=== PATIENT | female | born 1950 | race Caucasian/White ===

== ENCOUNTER 2020-10-03 06:44 | Day surgery (SDC) | payer MEDICARE, SELFPAY ==
[2020-09-27 14:07] VITALS: BMI 36.3
--- NOTE | 2020-09-30 12:53 | MHC.SHP ---
Pre-Procedural Eval Section A The patient is an INPATIENT: No The History & Physical has been completed within 30 days and I have reviewed it.: Yes Section B Chief Complaint: Cataract Right Eye Allergies: Allergies Allergy/AdvReac Type Severity Reaction Status Date / Time clindamycin Allergy Intermediate Hives Verified 09/27/20 14:13 oxycodone Allergy Intermediate Hives Verified 09/27/20 14:13 Rhlbfzo-Etn-Hqp Reductase AdvReac Intermediate Muscle Pain Verified 09/27/20 14:13 Inhibitor Sulfa (Sulfonamide AdvReac Intermediate Nausea Verified 09/27/20 14:13 Antibiotics) Plan Diagnosis/Plan: Unchanged I have reviewed the history and physical and performed a pertinent physical examination on my patient. No changes have occurred unless specified.
[2020-10-03] MEDS: Tetracaine HCl/PF 0.5% Oph Sol 4 ML DROPS 1 DROP EYE-RIGHT (07:04)
[2020-10-03] MEDS: Tropicamide 1 % Ophth Sol 3 ML BTL 1 DROP EYE-RIGHT ×3 (07:07→07:15)
[2020-10-03] MEDS: Phenylephrine HCL 2.5% Oph SoL 2 ML BOTTLE 1 DROP EYE-RIGHT ×3 (07:09→07:17)
[2020-10-03 07:27] VITALS: BP 140/73; PULSE 70; RESP 18; TEMP 36.2; O2SAT 97
[2020-10-03] MEDS: Lactated Ringers 500 ML 50 ML IV (07:27)
--- NOTE | 2020-10-03 07:56 | P.CONAN_ITS ---
[facility] Past Medical History Medical History Arthritis Depression Elevated cholesterol GERD (gastroesophageal reflux disease) HTN (hypertension) Surgical History Surgical History H/O colonoscopy History of total bilateral knee replacement History of total right hip replacement Social History Social History Are you a primary insurance healthcare representative to a significant other at home: No Do you presently have visiting nurse or other home services: No Smoking Status: Never smoker Use of substances other than those prescribed or required for medical reasons: No Have you been hit, kicked, punched, or otherwise hurt by someone within the past year? If so, by whom?: No Advance Directives Information Provided: No Recently lost weight without trying: No Meds Allergies Allergy/AdvReac Type Severity Reaction Status Date / Time clindamycin Allergy Intermediate Hives Verified 09/27/20 14:13 oxycodone Allergy Intermediate Hives Verified 09/27/20 14:13 Dajgtlo-Ghg-Lqf Reductase AdvReac Intermediate Muscle Pain Verified 09/27/20 14:13 Inhibitor Sulfa (Sulfonamide AdvReac Intermediate Nausea Verified 09/27/20 14:13 Antibiotics) Active Medications: Current Medications Generic Name Dose Route Start Last Admin Trade Name Freq PRN Reason Stop Dose Admin Lactated Ringer's 500 mls @ 50 mls/hr 10/03/20 07:15 10/03/20 07:27 Lr IV 50 mls/hr .Q10H TREMAYNE Administration Ondansetron HCl 4 mg 10/03/20 07:47 Ondansetron Hcl 4 Mg/2 Ml Vial IVPUSH ONCE PRN Nausea and Vomiting Povidone Iodine 1 appl 10/03/20 06:53 Povidone Iodine 5 % Ophth Soln 30 Ml Bottle EYE-RIGHT PREOP PRN Pre-Op Surgical Implant Prophy Home Medications Medication Instructions Recorded Confirmed Last Taken Type aspirin [Aspirin Low Dose] 81 mg PO DAILY 09/27/20 09/27/20 Unknown History celecoxib 1 cap PO DAILY 09/27/20 09/27/20 Unknown History clonazepam 1 tab PO BID PRN 09/27/20 09/27/20 10/03/20 06:00 History diltiazem HCl 90 mg PO BID 09/27/20 09/27/20 10/03/20 06:00 History ezetimibe 10 mg PO DAILY 09/27/20 09/27/20 Unknown History fenofibrate micronized 134 mg PO QAM 09/27/20 09/27/20 Unknown History losartan 25 mg PO DAILY 09/27/20 09/27/20 Unknown History omeprazole 20 mg PO BID 09/27/20 09/27/20 10/03/20 06:00 History pramipexole 1 tab PO BEDTIME 09/27/20 09/27/20 Unknown History venlafaxine 1 cap PO DAILY 09/27/20 09/27/20 10/03/20 06:00 History Exam Exam Date and Time: October 03, 2020 0756 Height,Weight and Vital Signs: Height 4 ft 11 in Weight 81.647 kg Last Vital Signs Temp 97.2 F 10/03/20 07:27 Pulse 70 10/03/20 07:27 Resp 18 10/03/20 07:27 BP 140/73 H 10/03/20 07:27 Pulse Ox 97 10/03/20 07:27 Airway Mallampati Class: II TM Dist: >3cm Neck ROM: Full Loose/Missing/Broken Teeth: No Heart: rrr+[id number] Lungs: cta b/l Assessment and Plan Assessment Anesthesia Assessment: Anesthesia Plan Discussed and Chart Reviewed Final Anesthetic Review NPO: Yes ASA Class: III Final Preanesthetic Review: No Changes in Pt Med Stat, Meds/Allgs Chart Reviewed, Consent Obtained/Reviewed and Anes Risks/Benef Reviewed Patient Risk: Low Procedure Risk: Low Assessment/Block/Sedation in SS: Assess/Block/Sedation-SS Anesthetic Plan Anesthetic Plan: MAC: and Agree w/ Assess. and Plan Disposition: Standard PACU
--- NOTE | 2020-10-03 08:43 | HO.PNOPHT ---
Ophthalmology Procedure Procedure Date of Service: 10/03/20 Ophthalmology Viscoelastic: Healon Duet Dual Pack Pro Ophthalmology Lenses: TECNIS [id number] (22.5) Procedure Notes: PREOPERATIVE DIAGNOSIS: Decreased visual acuity right eye secondary to cataract POSTOPERATIVE DIAGNOSIS: Same PROCEDURE: Right cataract extraction with intraocular lens insertion SURGEON: Andrae Moe M.D. ANESTHESIA: Topical/MAC ESTIMATED BLOOD LOSS: None COMPLICATIONS: None After obtaining informed consent, the patient was brought to the operating room suite and placed in the supine position. After adequate sedation per anesthesia, topical drops of Tetracaine were given to the right eye. The eye was then prepped and draped in the usual sterile fashion. The operating room microscope was then positioned over the operative eye and a lid speculum placed. A paracentesis was created. Viscoelastic was then instilled into the anterior chamber. A three plane incision was then created temporally, utilizing a 2.85 mm keratome. Capsulotomy forceps were then utilized to create a circular tear capsulotomy. Hydrodissection and hydrodelineation were carried out until adequate mobilization of the nucleus occurred. Phacoemulsification was then utilized to remove the dense central nucleus followed by removal of the cortical material utilizing the automated aspiration irrigation unit. Viscoelastic was instilled into the posterior capsular bag followed by placement of a posterior chamber intraocular lens without difficulty. The residual Viscoelastic was then removed utilizing the automated IA machine. The wound was checked and found to be watertight. The patient tolerated the procedure well and the lid speculum was removed. Intracameral injection of Vigamox 0.1 mL followed by a subtenon injection of Kenalog-40 0.2 mL were administered. The patient will be seen in the a.m.
[2020-10-03 08:46] VITALS: BP 134/71; PULSE 75; RESP 20; TEMP 36.7; O2SAT 96
== END 2020-10-03 09:20 | disposition home or self-care (01) ==
PROVIDERS: PCP Family Medicine; Visit Provider Ophthalmology
PROC: (CPT 66985; principal; 2020-10-03 08:20)
DX: H25.11 Age-related nuclear cataract, right eye (principal); H52.4 Presbyopia; Z83.511 Family history of glaucoma; I10 Essential (primary) hypertension; Z79.899 Other long term (current) drug therapy
CPT/HCPCS: 66984; J2250; J3010; J3300; V2632

== ENCOUNTER 2020-10-17 07:09 | Day surgery (SDC) | payer MEDICARE, SELFPAY ==
[2020-09-27 14:14] VITALS: BMI 36.3
--- NOTE | 2020-10-12 16:32 | MHC.SHP ---
Pre-Procedural Eval Section A The patient is an INPATIENT: No The History & Physical has been completed within 30 days and I have reviewed it.: Yes Section B Chief Complaint: Cataract Left Eye Allergies: Allergies Allergy/AdvReac Type Severity Reaction Status Date / Time clindamycin Allergy Intermediate Hives Verified 09/27/20 14:13 oxycodone Allergy Intermediate Hives Verified 09/27/20 14:13 Rzhdryt-Zqf-Gyv Reductase AdvReac Intermediate Muscle Pain Verified 09/27/20 14:13 Inhibitor Sulfa (Sulfonamide AdvReac Intermediate Nausea Verified 09/27/20 14:13 Antibiotics) Plan Diagnosis/Plan: Unchanged I have reviewed the history and physical and performed a pertinent physical examination on my patient. No changes have occurred unless specified.
--- NOTE | 2020-10-14 08:25 | P.CONAN_ITS ---
Documented by User: Beth Guillen 10/14/20 08:26 HPI - Anesthesia Eval Consult details Narrative: 69yo F for Left Cataract Extraction IOL Insertion Right eye 10/03/20, Fent 25, Midaz 1 PMFSH Past Medical History Medical History Arthritis Depression Elevated cholesterol GERD (gastroesophageal reflux disease) HTN (hypertension) Surgical History Surgical History H/O colonoscopy History of total bilateral knee replacement History of total right hip replacement Social History Social History Are you a primary patient care provider to a significant other at home: No Do you presently have visiting nurse or other home services: No Smoking Status: Never smoker Use of substances other than those prescribed or required for medical reasons: No Have you been hit, kicked, punched, or otherwise hurt by someone within the past year? If so, by whom?: No Advance Directives Information Provided: No Recently lost weight without trying: No Meds Allergies Allergy/AdvReac Type Severity Reaction Status Date / Time clindamycin Allergy Intermediate Hives Verified 10/17/20 07:17 oxycodone Allergy Intermediate Hives Verified 10/17/20 07:17 Tubptck-Wcp-Qfn Reductase AdvReac Intermediate Muscle Pain Verified 10/17/20 07:17 Inhibitor Sulfa (Sulfonamide AdvReac Intermediate Nausea Verified 10/17/20 07:17 Antibiotics) Home Medications Medication Instructions Recorded Confirmed Last Taken Type aspirin [Aspirin Low Dose] 81 mg PO DAILY 09/27/20 09/27/20 10/16/20 09:00 History celecoxib 1 cap PO DAILY 09/27/20 09/27/20 Unknown History clonazepam 1 tab PO BID PRN 09/27/20 09/27/20 10/17/20 06:30 History diltiazem HCl 90 mg PO BID 09/27/20 09/27/20 10/17/20 06:30 History ezetimibe 10 mg PO DAILY 09/27/20 09/27/20 Unknown History fenofibrate micronized 134 mg PO QAM 09/27/20 09/27/20 Unknown History losartan 25 mg PO DAILY 09/27/20 09/27/20 Unknown History omeprazole 20 mg PO BID 09/27/20 09/27/20 10/17/20 06:30 History pramipexole 1 tab PO BEDTIME 09/27/20 09/27/20 Unknown History venlafaxine 1 cap PO DAILY 09/27/20 09/27/20 10/17/20 06:30 History Exam Exam Date and Time: October 14, 2020 0825 Height,Weight and Vital Signs: Height 4 ft 11 in Weight 81.647 kg Assessment and Plan Assessment Anesthesia Assessment: Chart Reviewed Documented by User: Yoly Sutton 10/17/20 08:18 PMF Past Medical History Medical History Arthritis Depression Elevated cholesterol GERD (gastroesophageal reflux disease) HTN (hypertension) Surgical History Surgical History H/O colonoscopy History of total bilateral knee replacement History of total right hip replacement Social History Social History Are you a primary patient care provider to a significant other at home: No Do you presently have visiting nurse or other home services: No Smoking Status: Never smoker Use of substances other than those prescribed or required for medical reasons: No Have you been hit, kicked, punched, or otherwise hurt by someone within the past year? If so, by whom?: No Advance Directives Information Provided: No Recently lost weight without trying: No Meds Allergies Allergy/AdvReac Type Severity Reaction Status Date / Time clindamycin Allergy Intermediate Hives Verified 10/17/20 07:17 oxycodone Allergy Intermediate Hives Verified 10/17/20 07:17 Jvqmfys-Why-Fiz Reductase AdvReac Intermediate Muscle Pain Verified 10/17/20 07:17 Inhibitor Sulfa (Sulfonamide AdvReac Intermediate Nausea Verified 10/17/20 07:17 Antibiotics) Home Medications Medication Instructions Recorded Confirmed Last Taken Type aspirin [Aspirin Low Dose] 81 mg PO DAILY 09/27/20 09/27/20 10/16/20 09:00 History celecoxib 1 cap PO DAILY 09/27/20 09/27/20 Unknown History clonazepam 1 tab PO BID PRN 09/27/20 09/27/20 10/17/20 06:30 History diltiazem HCl 90 mg PO BID 09/27/20 09/27/20 10/17/20 06:30 History ezetimibe 10 mg PO DAILY 09/27/20 09/27/20 Unknown History fenofibrate micronized 134 mg PO QAM 09/27/20 09/27/20 Unknown History losartan 25 mg PO DAILY 09/27/20 09/27/20 Unknown History omeprazole 20 mg PO BID 09/27/20 09/27/20 10/17/20 06:30 History pramipexole 1 tab PO BEDTIME 09/27/20 09/27/20 Unknown History venlafaxine 1 cap PO DAILY 09/27/20 09/27/20 10/17/20 06:30 History Exam Height,Weight and Vital Signs: Vital Signs Temp Pulse Resp BP Pulse Ox 10/17/20 07:38 97.2 F 71 18 144/72 H 97 Airway Mallampati Class: II TM Dist: >3cm Neck ROM: Full Heart: RRR Lungs: CTAB Assessment and Plan Assessment Anesthesia Assessment: Anesthesia Plan Discussed and Chart Reviewed Final Anesthetic Review NPO: Yes ASA Class: II Final Preanesthetic Review: No Changes in Pt Med Stat, Meds/Allgs Chart Reviewed, Consent Obtained/Reviewed and Anes Risks/Benef Reviewed Patient Risk: Low Procedure Risk: Low Assessment/Block/Sedation in SS: Assess/Block/Sedation-SS Anesthetic Plan Anesthetic Plan: MAC: Disposition: Standard PACU
[2020-10-17 07:38] VITALS: BP 144/72; PULSE 71; RESP 18; TEMP 36.2; O2SAT 97
[2020-10-17] MEDS: Lactated Ringers 500 ML 50 ML IV (07:49)
[2020-10-17] MEDS: Tetracaine HCl/PF 0.5% Oph Sol 4 ML DROPS 1 DROP EYE-LEFT (07:50)
[2020-10-17] MEDS: Tropicamide 1 % Ophth Sol 3 ML BTL 1 DROP EYE-LEFT ×3 (07:51→07:59)
[2020-10-17] MEDS: Phenylephrine HCL 2.5% Oph SoL 2 ML BOTTLE 1 DROP EYE-LEFT ×3 (07:54→08:01)
--- NOTE | 2020-10-17 08:54 | HO.PNOPHT ---
Ophthalmology Procedure Procedure Date of Service: 10/17/20 Ophthalmology Viscoelastic: Healon Duet Dual Pack Pro Ophthalmology Lenses: TECMIRIAM [id number] (22) Procedure Notes: PREOPERATIVE DIAGNOSIS: Decreased visual acuity left eye secondary to cataract POSTOPERATIVE DIAGNOSIS: Same PROCEDURE: Left cataract extraction with intraocular lens insertion SURGEON: Andrae Moe M.D. ANESTHESIA: Topical/MAC ESTIMATED BLOOD LOSS: None COMPLICATIONS: None After obtaining informed consent, the patient was brought to the operation room suite and placed in the supine position. After adequate sedation per anesthesia, topical drops of Tetracaine were given to the left eye. The eye was then prepped and draped in the usual sterile fashion. The operating room microscope was then positioned over the operative eye and a lid speculum placed. A paracentesis was created. Viscoelastic was then instilled into the anterior chamber. A three plane incision was then created temporally, utilizing a 2.85 mm keratome. Capsulotomy forceps were then utilized to create a circular tear capsulotomy. Hydrodissection and hydrodelineation were carried out until adequate mobilization of the nucleus occurred. Phacoemulsification was then utilized to remove the dense central nucleus followed by removal of the cortical material utilizing the automated aspiration irrigation unit. Viscoat elastic was instilled into the posterior capsular bag followed by placement of a posterior chamber intraocular lens without difficulty. The residual Viscoat elastic was then removed utilizing the automated IA machine. The wound was check and found to be watertight. The patient tolerated the procedure well and the lid speculum was removed. Intracameral injection of Vigamox 0.1 mL followed by a subtenon injection of Kenalog-40 0.2 mL were administered. The patient will be seen in the a.m.
[2020-10-17 08:56] VITALS: BP 131/65; PULSE 62; RESP 14; TEMP 36.1; O2SAT 100
== END 2020-10-17 09:30 | disposition home or self-care (01) ==
PROVIDERS: PCP Family Medicine; Visit Provider Ophthalmology
PROC: (CPT 66985; principal; 2020-10-17 08:50)
DX: H25.12 Age-related nuclear cataract, left eye (principal); H52.4 Presbyopia; I10 Essential (primary) hypertension; K21.9 Gastro-esophageal reflux disease without esophagitis; Z79.899 Other long term (current) drug therapy
CPT/HCPCS: 66984; J2250; J3010; J3300; V2632

== ENCOUNTER 2023-01-04 17:08 | Emergency (ER) | payer MEDICARE, SELFPAY ==
--- NOTE | ~2023-01-04 | XR_ITS ---
EXAMINATION: XR HAND, LEFT CLINICAL INFORMATION: Laceration. COMPARISON: None available. TECHNIQUE: PA, lateral, and oblique views of the left hand. FINDINGS: Soft tissue irregularity in the distal aspect of the third and fourth digits, possibly related with the lacerations. No radiopaque foreign bodies. Nonspecific irregularity of the distal ulna with faint adjacent chondrocalcinosis. Moderate multifocal degenerative osteoarthritis with joint space narrowing, subcortical sclerosis and small osteophytes more apparent in the first carpometacarpal joint and DIP joints. XR/XR hand LT min 3V IMPRESSION: 1. Nonspecific irregularity of the distal ulna, recommend correlation with point tenderness. 2. Moderate multifocal degenerative osteoarthritis.
[2023-01-04 17:30] VITALS: BP 140/69; PULSE 80; RESP 18; TEMP 36.6; O2SAT 97; BMI 36.4
--- NOTE | 2023-01-04 17:30 | ED_ITS ---
HPI - General Adult General Chief complaint: Wound/Laceration Stated complaint: Finger lac Time Seen by Provider: 01/04/23 17:50 Source: patient Mode of arrival: ambulatory Limitations: no limitations History of Present Illness HPI narrative: 72-year-old female with history of diabetes, HTN, HLD presents to the ER for evaluation of lacerations to her 3rd and 4th digits on her left hand, sustained earlier today when she accidentally cut them on a head tremor. She reports ongoing bleeding and discomfort to the area. She is able to fully flex and extend the digits. She denies any numbness or tingling. She is unsure when she got her last tetanus shot MD complaint: left 3rd and 4th digit lacerations at the tip Onset (ago): hour(s) Location: left and upper extremity Radiation: non-radiation Severity: moderate Quality: aching Pain Consistency: intermittent Relieving factors: immobilization Exacerbating factors: movement Associated symptoms: denies other symptoms Treatments prior to arrival: other (bandage) Related Data Home Medications Medication Instructions Recorded Confirmed aspirin 81 mg tablet,delayed 81 mg PO DAILY 09/27/20 09/27/20 release (Landon Low Dose Aspirin) celecoxib 200 mg capsule 1 cap PO DAILY 09/27/20 09/27/20 clonazepam 0.5 mg tablet 1 tab PO BID PRN Anxiety 09/27/20 09/27/20 diltiazem HCl 90 mg tablet 90 mg PO BID 09/27/20 09/27/20 ezetimibe 10 mg tablet 10 mg PO DAILY 09/27/20 09/27/20 fenofibrate micronized 134 mg 134 mg PO QAM 09/27/20 09/27/20 capsule losartan 25 mg tablet 25 mg PO DAILY 09/27/20 09/27/20 omeprazole 20 mg capsule,delayed 20 mg PO BID 09/27/20 09/27/20 release pramipexole 0.125 mg tablet 1 tab PO BEDTIME 09/27/20 09/27/20 venlafaxine 150 mg 1 cap PO DAILY 09/27/20 09/27/20 capsule,extended release 24 hr Previous Rx's Medication Instructions Recorded amoxicillin 875 mg-potassium 1 tab PO BID #14 tabs 01/04/23 clavulanate 125 mg tablet Allergies Allergy/AdvReac Type Severity Reaction Status Date / Time clindamycin Allergy Intermediate Hives Verified 01/04/23 17:30 oxycodone Allergy Intermediate Hives Verified 01/04/23 17:30 Bfgtlnp-OVA-WlE Reductase AdvReac Intermediate Muscle Pain Verified 01/04/23 17:30 Inhibitor [Ihihznj-Qol-Rcc Reductase Inhibitor] Sulfa (Sulfonamide AdvReac Intermediate Nausea Verified 01/04/23 17:30 Antibiotics) Review of Systems Review of Systems: Yes all other systems are reviewed and are negative [facility] Past Medical History Medical History Arthritis Depression Elevated cholesterol GERD (gastroesophageal reflux disease) HTN (hypertension) Surgical History H/O colonoscopy History of total bilateral knee replacement History of total right hip replacement Social History Social History Are you a primary healthcare network consultant to a significant other at home: No Do you presently have visiting nurse or other home services: No Physical Exam ED Vital Signs: Vital Signs - 24 hr 01/04/23 17:30 Temperature 97.9 F Pulse Rate 80 Respiratory Rate 18 Blood Pressure 140/69 H Pulse Oximetry 97 Oxygen Delivery Method Room Air BMI result Body Mass Index 36.4 Appearance: Alert. Oriented X3. No acute distress. HEENT: normal inspection CVS: Normal heart rate and rhythm. Pulses normal. Respiratory: No respiratory distress. Skin: Skin warm and dry. Normal skin color. Normal skin turgor. No rashes. Extremities: left hand with digits 3 and 4 with oozing irregular lacerations to the tips of the fingers, no nail involvement, no partial amputations or avulsions. FROM of the digits Neuro: Oriented X 3. No motor deficit. No sensory deficit. Course Course Course Narrative: This is an RME: Additional HPI, ROS, PE not included below will be deferred to primary provider. [id number]-female, with a hx of hypothyroidism, HTN, HLD, and diabetes, presenting to the emergency department with complaint of left 3rd and 4th digits. She accidentally tripped the tip of her bilateral fingers on hedge trimmers. She is not on blood thinners. Unsure last tetanus Plan: Xray, will need sutures Medications Administered Discontinued Medications Generic Name Dose Route Start Last Admin Trade Name Freq PRN Reason Stop Dose Admin Diphtheria/Tetanus/Acell Pertussis 0.5 ml 01/04/23 17:51 01/04/23 18:03 Diphth,Pertus(Acell),Tet Adult 0.5 Ml Syringe IM 01/04/23 17:52 0.5 ml .ONCE ONE Administration Lidocaine HCl 2 ml 01/04/23 17:58 01/04/23 18:03 Lidocaine Hcl 1 % 20 Ml Vial INFILTRATI 01/04/23 17:59 2 ml ONCE ONE Administration Lidocaine HCl 2 ml 01/04/23 17:59 01/04/23 18:04 Lidocaine Hcl 1 % 20 Ml Vial INFILTRATI 01/04/23 18:00 2 ml ONCE ONE Administration Lidocaine HCl 2 ml 01/04/23 17:59 01/04/23 18:04 Lidocaine Hcl 1 % 20 Ml Vial INFILTRATI 01/04/23 18:00 2 ml ONCE ONE Administration Procedures Laceration Laceration 1: Site: hand Side (If applicable): left Size (cm): 1.5 Description: irregular and contaminated Depth: involves muscle layer Local Anesthetic: lidocaine 1% Amount of anesthesia used (mL): 3 Pre-repair: wound explored, irrigated extensively and deep structures intact Skin layer closed with: nylon Size (cm): 5-0 Number of sutures: 5 Technique: simple, interrupted Laceration 2: Site: hand Side (If applicable): left Size (cm): 2 Description: linear Depth: simple, single layer Local Anesthetic: lidocaine 1% Amount of anesthesia used (mL): 2 Pre-repair: wound explored, irrigated extensively and deep structures intact Skin layer closed with: nylon Size (cm): 5-0 Number of sutures: 3 Technique: simple, interrupted Medical Decision Making Medical Decision Making MDM Narrative: 72-year-old [id number] female presents to the ER for evaluation of lacerations to her 3rd and 4th digit on her left hand from a a machine trimmer. She has full range of motion and sensation. No visible bone on examination. X- ray does not show any bony involvement. She is diabetic. Slightly oozing of the wound on the 4th digit on arrival. The wounds were soaked in a combination of saline, iodine and Hydrpgen peroxide with cessation of bleeding. Wounds were explored and sutured closed. X-ray was reviewed. Will plan to start on oral antibiotics to prevent infection. We discussed wound care. Patient stable for discharge home with close outpatient follow it Differential Diagnosis Differential Diagnoses: The differential diagnosis associated with the presentation includes open finger fracture, complex wounds, contaminated wounds, tendon laceration Independent Interpretation I performed an independent interpretation of an: Plain X-Ray Interpretation: No acute fracture or bony involvement of the soft tissue injuries appreciated, agree with radiologist's read Radiology Impression Discussion of test interpretation with radiology: I have reviewed the radiologist's reading. Radiologist Impression: XR/XR hand LT min 3V IMPRESSION: 1.? Nonspecific irregularity of the distal ulna, recommend correlation with point tenderness. 2.? Moderate multifocal degenerative osteoarthritis. Independent Historian Clinical information obtained from an independent historian. History obtained from or confirmed by: Friend Prescription Management I considered prescription management with: Pain Medication and Antibiotic tdap Chronic Conditions Patient?s care impacted by: Diabetes and Hypertension Critical Care Time Critical Care Time Critical Care Time: No Discharge Plan Discharge Clinical Impression: Finger laceration Patient Disposition: Home, Self-Care Instructions: Finger Laceration (ED) Additional Instructions: Your x-ray did not show any bony involvement of the lacerations. You will need your stitches out in 7 days. See you doctor for this or come back to the ER and we will remove them. Do not get wet for 24 hours, after that you can briefly wash with soap and water then pat dry. Keep wound clean and covered. Do not submerge in water, no dishes or no swimming. Take the prescribed antibiotic as directed to help prevent infection, complete the entire course and do not miss any doses. If you develop signs of infection including increased pain, swelling, redness or drainage of pus come back to the ER for further evaluation. Prescriptions: New amoxicillin-pot clavulanate 875-125 mg tablet 1 tab PO BID Qty: 14 0RF No Action celecoxib 200 mg capsule 1 cap PO DAILY clonazepam 0.5 mg tablet 1 tab PO BID PRN (Reason: Anxiety) venlafaxine 150 mg capsule,extended release 24hr 1 cap PO DAILY fenofibrate micronized 134 mg capsule 134 mg PO QAM losartan 25 mg tablet 25 mg PO DAILY pramipexole 0.125 mg tablet 1 tab PO BEDTIME omeprazole 20 mg capsule,delayed release(DR/EC) 20 mg PO BID diltiazem HCl 90 mg tablet 90 mg PO BID ezetimibe 10 mg tablet 10 mg PO DAILY aspirin [Landon Low Dose Aspirin] 81 mg Tablet,Delayed Release (Dr/Ec) 81 mg PO DAILY Referrals: Musa Young MD [Primary Care Provider] -
--- NOTE | 2023-01-04 17:38 | PC.NURSE ---
last tetanus 2017.
[2023-01-04] MEDS: Diphth,Pertus(ACell),Tet Adult 0.5 ML SYRINGE IM (18:03)
[2023-01-04] MEDS: Lidocaine HCl 1 % 20 ML VIAL INFILTRATI ×3 (18:03→18:04)
== END 2023-01-04 19:25 | disposition home or self-care (01) ==
LOC: HO.ED 19:16
PROVIDERS: Emergency Provider Student in an Organized Health Care Education/Training Program; PCP Family Medicine
DX: S61.213A Laceration without foreign body of left middle finger without damage to nail, initial encounter (principal); S61.215A Laceration without foreign body of left ring finger without damage to nail, initial encounter; S60.512A Abrasion of left hand, initial encounter; W45.8XXA Other foreign body or object entering through skin, initial encounter; Y93.9 Activity, unspecified; Y92.9 Unspecified place or not applicable; Y99.9 Unspecified external cause status; Z23 Encounter for immunization; Z79.899 Other long term (current) drug therapy
CPT/HCPCS: 12042; 12045; 73130; 90471; 90715; 99282; 99284